=== PATIENT | female | born 1960 | race Caucasian/White ===

== ENCOUNTER 2017-02-12 10:30 | Day surgery (SDC) | payer OTHER ==
[~2017-02-12] VITALS: Ht 175.3 cm; Wt 65.8 kg
[~2017-02-12 10:30] MED LIST: DIAPLEX PO; HARD NAILS2500 MCG PO; MELATONIN10 M1 PO; NERVE PILL PO; NOLVADEX20 MG PO; OMEGA DHA92 MG PO; TRANSDERM-SCO1 PATCH TD; TYLENOL REGULA325 MG PO; VITAMIN D10000 UNIT PO; XANAX0.25 MG PO; ZINC CHELATED50 MG PO; [UNRECOGNIZED DRUG - OTHER] PO; [UNRECOGNIZED DRUG - REMARK]
[2017-02-12 11:04] VITALS: BP 110/64
[2017-02-12 16:04] VITALS: BP 132/65
== END 2017-02-12 17:50 | disposition home or self-care (01) ==
LOC: SDC 10:30
DX: Z45.812 Encounter for adjustment or removal of left breast implant (principal); Z90.12 Acquired absence of left breast and nipple; Z85.3 Personal history of malignant neoplasm of breast; N65.1 Disproportion of reconstructed breast; Z80.1 Family history of malignant neoplasm of trachea, bronchus and lung; Z82.3 Family history of stroke
CPT/HCPCS: 87070; 87075; 87205; 88304; C1789; J0690; J1170; J2405; J3010

== ENCOUNTER 2017-04-23 10:31 | Day surgery (SDC) | payer OTHER ==
[~2017-04-23] VITALS: Ht 175.3 cm; Wt 65.9 kg
[~2017-04-23 10:31] MED LIST changes: +MAGNESIUM400 M1 PO
[2017-04-23] MEDS ORDERED: TYLENOL EXTRA500 MG PO (10:59)
[2017-04-23 11:01] VITALS: BP 114/66
[2017-04-23 14:39] VITALS: BP 125/71
[2017-04-23 16:03] VITALS: BP 100/60
== END 2017-04-23 16:24 | disposition home or self-care (01) ==
LOC: SDC 10:31
PROC: 0HU Skin and Breast, Supplement (ICD-10-PCS; principal; 2017-04-23)
DX: N65.0 Deformity of reconstructed breast (principal); Z85.3 Personal history of malignant neoplasm of breast; Z79.810 Long term (current) use of selective estrogen receptor modulators (SERMs); Z86.2 Personal history of diseases of the blood and blood-forming organs and certain disorders involving the immune mechanism; Z87.891 Personal history of nicotine dependence; Z80.1 Family history of malignant neoplasm of trachea, bronchus and lung; Z82.3 Family history of stroke
CPT/HCPCS: J0690; J1100; J2250; J2405; J3010

== ENCOUNTER 2017-11-05 10:35 | Day surgery (SDC) | payer OTHER ==
[~2017-11-05] VITALS: Ht 175.3 cm; Wt 65.0 kg
[~2017-11-05 10:35] MED LIST changes: +TYLENOL EXTRA500 MG PO
[2017-11-05 11:00] VITALS: BP 117/66
[2017-11-05 14:25] VITALS: BP 126/61
[2017-11-05 15:21] VITALS: BP 103/60
== END 2017-11-05 15:31 | disposition home or self-care (01) ==
LOC: SDC 10:35
PROC: 0HRU07Z Replacement of Left Breast with Autologous Tissue Substitute, Open Approach (ICD-10-PCS; principal; 2017-11-05)
DX: N65.1 Disproportion of reconstructed breast (principal); N64.89 Other specified disorders of breast; K21.9 Gastro-esophageal reflux disease without esophagitis; Z85.3 Personal history of malignant neoplasm of breast; Z80.1 Family history of malignant neoplasm of trachea, bronchus and lung; Z87.891 Personal history of nicotine dependence
CPT/HCPCS: J0690; J2250; J2405; J3010